=== PATIENT | male | born 1950 | race Caucasian/White ===

== ENCOUNTER 2025-01-18 09:13 | Day surgery (SDC) | payer MEDICARE, SELFPAY ==
--- NOTE | 2025-01-13 11:50 | EXP.HP ---
History of Present Illness *Admission Date: 01/18/25 *History of present illness: Mr. Payne is a 74-year-old gentleman who is here for screening/surveillance colonoscopy secondary to a personal history of adenomatous colon polyps and family history of colon cancer. His colonoscopy in January 2016 revealed 9 polyps (tubular adenomas x 9) which were removed. His colonoscopy in April 2017 revealed 3 polyps (tubular adenomas x 3) which were removed. His last colonoscopy in August 2020 revealed 5 polyps (tubular adenomas x 5) which were removed. The patient's father had colon cancer in his mid 60s. The patient reports no abdominal pain, weight loss, change in his bowel habits or rectal bleeding. The examination is deemed medically necessary for screening/surveillance colonoscopy. The patient has been seen, interviewed and examined prior to the procedure by both myself and the anesthesia provider. [facility] Disclaimer: The information contained in this section may have been updated after the patient was seen, as this information can be updated by other users. Medical History Hyperlipidemia Hypertension Prostate cancer Surgical History No significant past surgical history Family History Other No significant family history Social History (Updated 01/18/25 @ 10:39 by Meryl Butterfield CRNA) Smoking Status: Never smoker alcohol intake: never substance use type: unknown current occupational status: retired Travel in the last 8 weeks?: None caffeine: Yes Have you lived/traveled outside [place] in past 30 days?: No Contact w/someone who lives/traveled outside [place] past 30 days?: No Exposure to someone with infectious disease in past 14 days?: No Do you have a fever (greater than 100.4 F or 38 C)?: No Have you tested positive for COVID-19?: No Exposed to someone with COVID-19 in past 14 days?: No Do you have a sore throat?: No Do you have a cough?: No Do you have any weakness?: No Are you experiencing any nausea/vomitting?: No Do you have any diarrhea?: No Are you experiencing any unusual bleeding?: No Do you have any muscle aches/pain?: No Do you have any abdominal pain?: No Are you experiencing loss of taste or smell?: No Review of Systems Review of Systems Review of systems (narrative): Negative *Cardiovascular Comments: Negative *Gastrointestinal Comments: Negative *Genitourinary Comments: Negative *Musculoskeletal Comments: Negative *Neurologic Comments: Negative Meds Home Medications and Allergies Home Medications ?Medication ?Instructions ?Recorded ?Confirmed ?Type sodium,potassium,mag sulfates 17.5 See Rx Instructions PO .COMPLEX 01/16/25 Rx gram-3.13 gram-1.6 gram oral soln #354 mL (Suprep Bowel Prep Kit) atorvastatin 40 mg tablet 40 mg PO HS 01/18/25 01/18/25 History celecoxib 200 mg capsule 200 mg PO DAILY 01/18/25 01/18/25 History memantine 5 mg tablet 5 mg PO DAILY 01/18/25 01/18/25 History telmisartan 80 mg tablet 80 mg PO DAILY 01/18/25 01/18/25 History vitamin B12 1 mg-folic acid 0.8 mg 1 tab PO DAILY 01/18/25 01/18/25 History tablet New Prescriptions to Start Prescriptions: Allergies Allergy/AdvReac Type Severity Reaction Status Date / Time No Known Allergies Allergy Verified 01/18/25 10:17 Exam *Routine HEENT Exam Head: Present normocephalic Eye: Present EOMI and PERRL ENT: Present mucous membranes moist *Routine Neck Exam Neck: Present supple *Routine Respiratory Exam Respiratory: Present CTA bilaterally *Routine Cardiovascular Exam Cardiovascular: Present RRR *Routine Abdominal Exam Abdominal: Present soft and normoactive bowel sounds; Absent tenderness *Routine Rectal Exam Rectal:: deferred *Routine Genitalia Exam Genitalia:: deferred *Routine Extremities Exam Extremities: Absent cyanosis, clubbing or edema *Routine Skin Exam Skin: Present warm; Absent rash *Routine Neurological Exam Neurological: Present alert and oriented X3 Assessment and Plan *Assessment and plan (1) Personal history of adenomatous and serrated colon polyps: Status: Acute Category: Medical Code(s): Z86.0101 - Personal history of adenomatous and serrated colon polyps (2) Family history of colon cancer in father: Status: Acute Category: Medical Code(s): Z80.0 - Family history of malignant neoplasm of digestive organs (3) Screening for colon cancer: Status: Acute Category: Medical Code(s): Z12.11 - Encounter for screening for malignant neoplasm of colon Plan A/P: 1. Personal history of adenomatous colon polyps and family history of colon cancer (father) is the preprocedural diagnosis. The patient will be anesthetized/sedated using MAC sedation. The patient has been seen and examined. Cardiac and lung assessment prior to the examination is stable. Proceed with planned screening colonoscopy.
--- NOTE | 2025-01-18 06:54 | P.PCN_ITS ---
[facility] Procedure Note Date: 01/18/25 Time: 11:59 Procedure Note:: Colonoscopy Procedure Report: Colonoscopy with cold snare polypectomy Endoscopist: Rahul Vance II, MD Referring physician: Eliot Celaya MD Date of Procedure: January 18, 2025 Equipment: Olympus [id number] adult colonoscope Sedation: MAC sedation Indication: Mr. Payne is a 74-year-old gentleman who is here for screening/surveillance colonoscopy secondary to a personal history of adenomatous colon polyps and family history of colon cancer. His colonoscopy in January 2016 revealed 9 polyps (tubular adenomas x 9) which were removed. His colonoscopy in April 2017 revealed 3 polyps (tubular adenomas x 3) which were removed. His last colonoscopy in August 2020 revealed 5 polyps (tubular adenomas x 5) which were removed. The patient's father had colon cancer in his mid 60s. The patient reports no abdominal pain, weight loss, change in his bowel habits or rectal bleeding. The examination is deemed medically necessary for screening/surveillance colonoscopy. Procedure: Prior to the procedure, a history and physical exam was performed, and patient's medications and allergies were reviewed. The risks, benefits and alternatives of the sedation and procedure were discussed with the patient. All questions were answered and informed consent was obtained. The patient was brought to the procedure room. Patient identification and proposed procedure were verified by the physician and the nurse. The patient was placed in a left lateral decubitus position and the scope was passed under direct vision. Throughout the procedure, the patient's blood pressure, pulse, and oxygen saturations were monitored continuously. The colonoscopy was accomplished without difficulty. The patient tolerated the procedure well. Findings: On digital rectal examination there was normal rectal tone. There were no external hemorrhoids. The colonoscope was introduced through the anal canal to the rectum and advanced to the cecum. The ileocecal valve and appendiceal orifice were identified. The scope was advanced a short distance into the ileum which appeared grossly normal. The scope was then withdrawn into the colon. The cecum, ascending and transverse colon and mucosa were grossly normal. There were 3 polyps (descending x 1 (4 mm), rectosigmoid x 1 (4 mm) and rectum x 1 (5 mm)). These were all removed via cold snare polypectomy. There were scattered diverticuli throughout the descending and sigmoid colon (LEFT colon). The rectum itself was normal. Upon retroflexion within the rectum there were grade 2 internal hemorrhoids. The preparation was excellent throughout with Dorena Preparation Score of 9. The cecal time was 14 minutes. Impression: 1. Diminutive colonic polyps x 3 2. Left-sided diverticulosis 3. Grade 2 internal hemorrhoids Plan: I will follow-up the polyp histology and we will discuss whether further screening/surveillance is warranted. I would encourage psyllium bulking fiber supplementation on a long-term daily maintenance basis.
[2025-01-18 10:13] VITALS: BP 142/80; PULSE 81; RESP 18; TEMP 36.4; O2SAT 97; BMI 30.5
[2025-01-18] MEDS: LACTATED RINGERS 1000ML 1,000 ML 50 ML IV (10:33)
--- NOTE | 2025-01-18 10:37 | EXP.ANES.CKL ---
[facility] Disclaimer: The information contained in this section may have been updated after the patient was seen, as this information can be updated by other users. Medical History Hyperlipidemia Hypertension Prostate cancer Surgical History No significant past surgical history Family History Other No significant family history Social History Smoking Status: Never smoker alcohol intake: never substance use type: unknown current occupational status: retired Travel in the last 8 weeks?: None caffeine: Yes [facility] Anesthesia Checklist Patient Identification Patient Identification: Arm Band and Verbal (Name & ) Structural Data Admitted From: Home Planned Operative Procedure/s: colonscopy Consent for Planned Operative Procedure(s) Verified: Yes Verified Documents: Surgical Consent and History and Physical NPO Status Verified Time NPO: 00:00 Additional verifications Anesthesia Reactions: No Previous Colonoscopy: Yes Airway Assessment Mallampati Score:: Class II Dentition: Good Dentition Neurological Assessment Level of Consciousness: Awake, Alert and Appropriate Hx Seizures: No Numbness or tingling in extremities: No Anesthesia Plan Anesthesia Risk discussed: Yes Anesthesia Plan: Verified ASA Class: II Anesthesia Type: MAC
[2025-01-18 12:01] VITALS: BP 91/52; PULSE 64; RESP 18; TEMP 36.6; O2SAT 93
[2025-01-18 12:11] VITALS: BP 111/65; PULSE 57; O2SAT 93
[2025-01-18 12:21] VITALS: BP 110/71; PULSE 59; O2SAT 95
[2025-01-18 12:31] VITALS: BP 108/68; PULSE 64; O2SAT 94
== END 2025-01-18 12:31 | disposition home or self-care (01) ==
PROVIDERS: PCP Internal Medicine; Visit Provider Internal Medicine Gastroenterology
PROC: 0DJD8ZZ Inspection of Lower Intestinal Tract, Via Natural or Artificial Opening Endoscopic (ICD-10-PCS; CPT 45378; principal; 2025-01-18 11:00)
DX: Z12.11 Encounter for screening for malignant neoplasm of colon (principal); D12.4 Benign neoplasm of descending colon; D12.7 Benign neoplasm of rectosigmoid junction; D12.8 Benign neoplasm of rectum; K57.30 Diverticulosis of large intestine without perforation or abscess without bleeding; K64.1 Second degree hemorrhoids; I10 Essential (primary) hypertension; E78.5 Hyperlipidemia, unspecified; Z86.0101 Personal history of adenomatous and serrated colon polyps; Z80.0 Family history of malignant neoplasm of digestive organs; Z85.46 Personal history of malignant neoplasm of prostate
CPT/HCPCS: 45385; 88305; J2003; J2704; J7120